=== PATIENT | female | born 1955 | race Caucasian/White ===

== ENCOUNTER 2020-08-01 08:00 | Outpatient (CLI) | payer MEDICARE ==
--- NOTE | 2020-08-01 15:25 | XRAY Report ---
PROCEDURE: Knee 4 View BILAT INDICATIONS: BILATERAL KNEE PX TECHNIQUE: 4 views of the bilateral knee(s) were acquired, 8 images total.. COMPARISON: None. FINDINGS: Bones: No fractures or dislocations. No suspicious bony lesions. Note is made of left greater than right medial compartment severe knee joint osteoarthritis, without acute trauma. Minimal distortion of the left proximal tibial metadiaphyseal junction is indicative of a likely prior fracture or other trauma in this area. Soft tissues: No joint effusion. No suspicious soft tissue calcifications. IMPRESSION: Asymmetric left greater than right knee joint degenerative osteoarthritis, severe on the left and near severe on the right. Old left-sided proximal tibial metadiaphyseal junction fracture i s suspected based on the frontal weightbearing view. Reviewed by: Liban Ramirez MD on 08/01/2020 3:23 PM PDT Approved by: Liban Ramirez MD on 08/01/2020 3:23 PM PDT Station ID: [id number]
== END 2020-08-01 23:59 | disposition home or self-care (01) ==
LOC: DI.N 08:00
PROVIDERS: ATTEND Physician Assistant
DX: M17.0 Bilateral primary osteoarthritis of knee (principal)

== ENCOUNTER 2021-02-11 11:49 | Outpatient (CLI) | payer MEDICARE ==
[2021-02-11] MEDS ORDERED: IOVERSOL 320 100 ML VIAL IVP ONE ×2 (12:22→14:15)
[2021-02-11] MEDS ORDERED: IOVERSOL 320 50 ML VIAL ONE (12:22)
[2021-02-11 12:59] LABS: CREATININE 0.8 mg/dL (0.4-1.0)
[2021-02-11] MEDS ORDERED: IOVERSOL 320 50 ML VIAL PO ONE (14:16)
--- NOTE | 2021-02-12 09:44 | CT Report ---
PROCEDURE: Abdomen/Pelvis W INDICATIONS: OVARIAN CA CONTRAST: IV CONTRAST: Optiray 320 ml: 100 PO CONTRAST: Optiray 320 ml50 TECHNIQUE: After the administration of oral and intravenous contrast, 5 mm thick sections acquired from the diap hragms to the symphysis. 5 mm thick coronal and sagittal reformats were acquired. For radiation dos e reduction, the following was used: automated exposure control, adjustment of mA and/or kV accordin g to patient size. COMPARISON: None. FINDINGS: Image quality: Excellent. ABDOMEN: Lung bases: Multiple small lung nodules are present at lung bases. Heart size is normal. There is a 1.4 cm soft tissue nodule adjacent to the right atrium, suspicious for a pericardial lymph node. A 1 .0 cm soft tissue nodule is seen underneath the right hemidiaphragm anteriorly. Solid organs: Liver and spleen are normal in size and enhancement. There is a 2.6 cm splenule poste rior to spleen. Gallbladder is normal. Biliary system is non dilated. Pancreas enhances normally. No adrenal nodules. Kidneys demonstrate normal size and enhancement, without hydronephrosis. Peritoneum and bowel: Bowel loops demonstrate normal wall thickness and caliber. No free fluid or a ir. Nodes and vessels: No retroperitoneal or mesenteric adenopathy by size criteria. Aorta and inferior vena cava are normal in size. Miscellaneous: A small ventral hernia is noted left of the midline containing a short segment of cooper sverse colon. No findings to suggest colonic obstruction. PELVIS: Genitourinary: Bladder wall thickness is normal. Uterus and ovaries are absent. No pathological fr ee fluid in the cul-de-sac. Miscellaneous: No inguinal hernias or adenopathy. Bones: No suspicious bony lesions. No vertebral body compression fractures. Mild scoliosis. Modera te degenerative changes in lumbar spine. IMPRESSION: 1. Small pulmonary nodules are present bilaterally. Recommend chest CT for follow-up evaluation in th is patient with history of ovarian cancer. 2. A 1.4 cm right pericardial lymph node and a 1.0 cm soft tissue nodule underneath the right hemidia phragm anteriorly. Cannot rule out metastatic disease. Recommend correlation with tumor markers. If c linically indicated, a PET/CT is suggested for follow-up. 3. Hysterectomy and bilateral oophorectomies. 4. A small ventral hernia left of the midline containing a short segment of transverse colon. Reviewed by: Oziel Mathis MD on 02/12/2021 9:43 AM PST Approved by: Oziel Mathis MD on 02/12/2021 9:43 AM PST Station ID: [id number]
== END 2021-02-11 11:50 | disposition home or self-care (01) ==
LOC: LAB 11:49
PROVIDERS: ATTEND Surgery
DX: C56.9 Malignant neoplasm of unspecified ovary (principal); R91.8 Other nonspecific abnormal finding of lung field; R93.5 Abnormal findings on diagnostic imaging of other abdominal regions, including retroperitoneum; Z90.710 Acquired absence of both cervix and uterus; Z90.79 Acquired absence of other genital organ(s); K43.9 Ventral hernia without obstruction or gangrene
CPT/HCPCS: 36415; 74177; 82565; Q9967

== ENCOUNTER 2021-02-27 09:30 | Outpatient (CLI) | payer MEDICARE ==
[2021-02-27 10:11] LABS: BASOPHILS # (AUTO) 0.1 10^3/uL (0.0-0.1); BASOPHILS % (AUTO) 0.9 %; EOSINOPHILS # (AUTO) 0.3 10^3/uL (0.0-0.7); EOSINOPHILS % (AUTO) 5.6 %; HCT - HEMATOCRIT 45.5 % (37.0-47.0); HGB - HEMOGLOBIN 14.3 g/dL (12.0-16.0); LYMPHOCYTES # (AUTO) 1.3 10^3/uL (1.5-3.5); LYMPHOCYTES % (AUTO) 22.8 %; MEAN CORPUSCULAR HEMOGLOBIN 27.6 pg (27.0-31.0); MEAN CORPUSCULAR HGB CONC 31.4 g/dL (32.0-36.0); MEAN CORPUSCULAR VOLUME 87.7 fL (81.0-99.0); MEAN PLATELET VOLUME 12.4 fL (7.9-10.8); MONOCYTES # (AUTO) 0.5 10^3/uL (0.0-1.0); MONOCYTES % (AUTO) 8.2 %; NEUTROPHILS # (AUTO) 3.6 10^3/uL (1.5-6.6); NEUTROPHILS % (AUTO) 62.2 %; PLT - PLATELET COUNT 173 10^3/uL (130-450); RED BLOOD COUNT 5.19 10^6/uL (4.20-5.40); RED CELL DISTRIBUTION WIDTH 13.9 % (12.0-15.0); WHITE BLOOD COUNT 5.8 x10^3/uL (4.8-10.8)
[2021-02-27 10:24] LABS: ALBUMIN 4.2 g/dL (3.2-5.5); ALBUMIN/GLOBULIN RATIO 1.4 (1.0-2.2); BILIRUBIN,TOTAL 0.5 mg/dL (0.2-1.0); CALCIUM 8.7 mg/dL (8.5-10.3); CREATININE 0.7 mg/dL (0.4-1.0); POTASSIUM 3.9 mmol/L (3.5-5.0); TOTAL PROTEIN 7.2 g/dL (6.7-8.2)
[2021-02-27 10:41] LABS: THYROID STIMULATING HORMONE 1.29 uIU/mL (0.34-5.60)
--- NOTE | 2021-02-27 10:49 | XRAY Report ---
PROCEDURE: Chest 2 View X-Ray INDICATIONS: DYSPNEA,COUGH TECHNIQUE: 2 view(s) of the chest. COMPARISON: None. FINDINGS: Surgical changes and devices: None. Lungs and pleura: No pleural effusions or pneumothorax. Lungs are clear. Mediastinum: Mediastinal contours are normal. Heart size is normal. Bones and chest wall: No suspicious bony abnormalities. Soft tissues appear unremarkable. IMPRESSION: No acute cardiopulmonary abnormality. Reviewed by: Aguilar Agudelo on 02/27/2021 9:48 AM [facility] Approved by: Aguilar Agudelo on 02/27/2021 9:48 AM [facility] Station ID: [id number]
[2021-02-27 12:29] LABS: ESTIMATED AVERAGE GLUCOSE 131 mg/dL (70-100); HEMOGLOBIN A1c% 6.2 % (4.27-6.07)
== END 2021-02-27 09:31 | disposition home or self-care (01) ==
LOC: DI 09:30
PROVIDERS: ATTEND Internal Medicine
DX: R06.09 Other forms of dyspnea (principal); R05.3 Chronic cough; F32.9 Major depressive disorder, single episode, unspecified; E22.0 Acromegaly and pituitary gigantism; E66.9 Obesity, unspecified; R20.0 Anesthesia of skin
CPT/HCPCS: 36415; 80053; 81599; 82607; 83036; 83880; 84305; 84443; 85025

== ENCOUNTER 2021-03-22 09:06 | Outpatient (CLI) | payer MEDICARE ==
[2021-03-22 09:37] LABS: CREATININE 0.7 mg/dL (0.4-1.0)
[2021-03-22] MEDS ORDERED: iohexoL-300 100 ML VIAL ONE (09:58)
[2021-03-22] MEDS ORDERED: iohexoL-300 100 ML VIAL IVP ONE (10:37)
--- NOTE | 2021-03-23 08:54 | CT Report ---
PROCEDURE: CHEST W INDICATIONS: LUNG NODULES CONTRAST: Please see documentation of type of contrast used. TECHNIQUE: After the administration of intravenous contrast, 1 mm axial images were acquired from the pulmonary apices through the posterior costophrenic angles. Axial 5 mm soft tissue kernel reconstructions were performed as well as 8 mm axial MIP and coronal and sagittal 5 mm reformations. For radiation dose reduction, the following was used: automated exposure control, adjustment of mA and/or kV according to patient size. COMPARISON: None. FINDINGS: Image quality: Excellent. Lungs and pleura: Pulmonary nodules are as follows: 1. 6 mm pulmonary nodule, right lower lobe, image 231/4.. 2. 2 mm pulmonary nodule, right lower lobe, image 204/4. 3. 3 mm pulmonary nodule, right lower lobe, image 225/4 4. 3 mm pulmonary nodule, left lower lobe, image 172/4. 5. 3 mm pulmonary nodule, left lower lobe, image 200/4. 6. 2 mm pulmonary nodule, left lower lobe, image 226/4. No acute air space opacities. No pleural effusions or pneumothorax. Central and peripheral airways are patent and normal in caliber. Mediastinum: Heart size is normal. No pericardial effusion. No mediastinal or hilar adenopathy by size criteria. Thoracic aorta and central pulmonary arteries are normal in size. Esophagus is michelle l in caliber. No hiatal hernia. Bones and chest wall: No suspicious bony lesions. Mild S-shaped thoracolumbar scoliotic curvature. 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 Minimal chronic compressions of T3, T4, and T5. No axillary or supraclavicular adenopathy by size criteria. Thyroid is unremarkable as imaged.. Abdomen: Visualized upper abdominal solid organs appear normal. Upper abdominal bowel loops are nor mal in caliber. IMPRESSION: 1. Multiple small noncalcified pulmonary nodules, the largest of which is 6 mm. 2. Multiple chronic osteoporotic compressions. Comment: As per the Fleischner Society criteria,If the patient is at low risk for lung cancer follow up CT at 12 months, if unchanged, no further follow up needed. If the patient has risk factors for junior ng cancer, follow up chest CT at 6- 12 months, then at 18-24 months if no change. CLINICAL RECOMMENDATION STATEMENTS: In patients <35 years with an ITN detected on CT, MRI, or extrathyroidal ultrasound, the Committee re commends further evaluation with dedicated thyroid ultrasound if the nodule is "e1 cm and has no susp icious imaging features, and if the patient has normal life expectancy. In patients "e35 years with an ITN detected on CT, MRI, or extrathyroidal ultrasound, the Committee r ecommends further evaluation with dedicated thyroid ultrasound if the nodule is "e1.5 cm and has no s uspicious imaging features, and if the patient has normal life expectancy. (ACR, 2014) Reviewed by: Otoniel Cheatham MD on 03/23/2021 8:53 AM PST Approved by: Otoniel Cheatham MD on 03/23/2021 8:53 AM PST Station ID: [id number]
== END 2021-03-22 09:07 | disposition home or self-care (01) ==
LOC: DI 09:06
PROVIDERS: ATTEND Surgery
DX: R91.8 Other nonspecific abnormal finding of lung field (principal); Z87.891 Personal history of nicotine dependence; M80.88XA Other osteoporosis with current pathological fracture, vertebra(e), initial encounter for fracture
CPT/HCPCS: 36415; 71260; 82565; Q9967

== ENCOUNTER 2021-04-12 08:00 | Outpatient (CLI) | payer MEDICARE ==
[2021-04-12 18:11] LABS: BACTERIAL VAGINOSIS DNA POSITIVE (NEGATIVE); CANDIDA GLABRATA DNA NEGATIVE (NEGATIVE); CANDIDA GROUP DNA NEGATIVE (NEGATIVE); CANDIDA KRUSEI DNA NEGATIVE (NEGATIVE); TRICHOMONAS VAGINALIS DNA NEGATIVE (NEGATIVE)
== END 2021-04-12 08:01 | disposition home or self-care (01) ==
LOC: LAB.WC 08:00
PROVIDERS: ATTEND Obstetrics & Gynecology
DX: N76.0 Acute vaginitis (principal)
CPT/HCPCS: 87661; 87801

== ENCOUNTER 2021-04-25 08:51 | Outpatient (CLI) | payer MEDICARE ==
[2021-04-25] MEDS ORDERED: ALBUTEROL 1 PUFF INH STA (11:08)
== END 2021-04-25 08:52 | disposition home or self-care (01) ==
LOC: RT 08:51
PROVIDERS: ATTEND Internal Medicine
DX: R05.9 Cough, unspecified (principal); R06.00 Dyspnea, unspecified
CPT/HCPCS: 94060

== ENCOUNTER 2021-05-03 14:47 | Outpatient (CLI) | payer MEDICARE | END 2021-05-03 14:48 | disposition home or self-care (01) | LOC: LAB 14:47 | PROVIDERS: ATTEND Obstetrics & Gynecology | DX: C56.9 Malignant neoplasm of unspecified ovary (principal) | CPT/HCPCS: 36415; 86304 ==

== ENCOUNTER 2021-05-14 11:18 | Outpatient (CLI) | payer MEDICARE | END 2021-05-14 23:59 | disposition home or self-care (01) | LOC: RT 11:18 | PROVIDERS: ATTEND Obstetrics & Gynecology | DX: Z12.11 Encounter for screening for malignant neoplasm of colon (principal) | CPT/HCPCS: 93005 ==